=== PATIENT | female | born 1935 | race Caucasian/White ===

== ENCOUNTER → 2016-12-24 | Outpatient (CLI) | payer OTHER ==
[~2016-12-24] MED LIST: ACETAMINOPHEN PO; AZOR 10/40 MG T1 TAB PO; CALTRATE-600/VI1 TA2 PO; CATAPRES0.1 MG PO; CENTRUM SILVER PO; CLOPIDOGREL75 MG PO; CRESTOR PO; DORZOLAMIDE HCL10 M1 OS; HYDRALAZINE HC100 MG PO; LATANOPROST2.5 ML OS; LOPRESSOR PO; METFORMIN HCL500 M4 PO; METOPROLOL TAR25 MG PO; PEPCID PO; SYNTHROID0.05 MG PO; TRICOR134 MG PO; TRILIPIX135 MG PO; ZETIA PO
--- NOTE | ~2016-12-24 | US11 ---
[facility] A Service of [facility] & [facility] RADIOLOGY TEXT RESULTS PATIENT: ASHLEY CUMMINS LOCATION: [facility] : 35 UNIT #: [id number] AGE: [address]: Mason Redding MD SEX: F ORDER DR: [id number] [facility] [address] [place], [place] [address] [id number] O MR#: [id number] Acc #: [id number] NAME: ASHLEY CUMMINS : 1935 SEX: F STUDY DATE/TIME: 12/24/2016 12:44 UNIT: [facility] ROOM: STUDY DESCRIPTION: US Aorta Duplex Complete Attending Physician: Mason Redding M.D. Referring Physician: Mason Redding M.D. Ordering Physician: Mason Redding M.D. Primary Care Physician: Breezy Farah M.D. MEDICAL IMAGING REPORT This report is preliminary unless electronic signature is present EXAM Ultrasound of the aorta, 12/24/2016. HISTORY Abdominal aortica aneurysm. FINDINGS High-resolution, B-mode imaging and color flow Doppler analysis was performed of the abdominal aorta and iliac arteries in longitudinal and transverse views. The abdominal aorta measures 2.3 cm in greatest diameter in its proximal segment, 2.3 cm in greatest diameter in its mid segment and 4.4 cm in greatest diameter in its distal segment. The right common iliac artery measures about 11 mm in diameter. The left common iliac artery measures about 9 mm in diameter. There is no focal elevation of Doppler velocities at any level to suggest significant stenosis. IMPRESSION A 4.4 cm distal abdominal aortic aneurysm. The aneurysm has increased slightly in size compared to the previous study performed on 05/24/2015 when it measured 3.7 cm in diameter. Dictated by... Guido Cuellar M.D. THIS IS AN ELECTRONICALLY VERIFIED REPORT Guido Cuellar M.D. at 12/27/2016 10:29 AM SBS/coby TD: 12/25/2016 07:31 JOB #: [id number] MEDICAL IMAGING REPORT [facility] A Service of [facility] & [facility] RADIOLOGY TEXT RESULTS PATIENT: ASHLEY CUMMINS LOCATION: [facility] #: [id number] : 35 UNIT #: [id number] AGE: [address]: Masno Redding MD SEX: F ORDER DR: Page 1 of 1 COPY
--- NOTE | ~2016-12-24 | US82 ---
[facility] A Service of [facility] & [facility] RADIOLOGY TEXT RESULTS PATIENT: ASHLEY CUMMINS LOCATION: [facility] : 35 UNIT #: [id number] AGE: [address]: Mason Redding MD SEX: F ORDER DR: [id number] [facility] [address] [place], [place] [address] [id number] O MR#: [id number] Acc #: [id number] NAME: ASHLEY CUMMINS : 1935 SEX: F STUDY DATE/TIME: 12/24/2016 11:24 UNIT: [facility] ROOM: STUDY DESCRIPTION: US LE Art/Art Grafts Comp Melvin Attending Physician: Mason Redding M.D. Referring Physician: Mason Redding M.D. Ordering Physician: Mason Redding M.D. Primary Care Physician: Breezy Farah M.D. MEDICAL IMAGING REPORT This report is preliminary unless electronic signature is present EXAM Lower extremity arterial segmental pressures, 12/24/2016 HISTORY Peripheral artery disease. Claudication. FINDINGS The right brachial pressure is 162 and the left brachial pressure is 152. The right upper thigh pressure is 177, lower thigh 173, calf 123, dorsalis pedis 128, posterior tibial 139, and toes 73 for an ankle-brachial index of 0.86. Toe brachial index on the right is 0.45. The left upper thigh pressure is 201, lower thigh 195, calf 181, dorsalis pedis 170, posterior tibial 172, and toe 83 for an ankle-brachial index of 1.06. Toe brachial index on the left is 0.51. Doppler waveform analysis indicates a monophasic signal in the posterior tibial arteries bilaterally. There is a monophasic signal in the dorsalis pedis arteries bilaterally. Pulse volume recording tracings demonstrate damping of the signal from the calf to the ankle level on both sides. IMPRESSION Mild ischemia of the right leg with an ankle-brachial index of 0.86. There appears to be primarily popliteal and tibial artery occlusive disease involving the right leg. Normal perfusion to the left leg with an ankle-brachial index of 1.06. 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 STS. [facility] A Service of [facility] & [facility] RADIOLOGY TEXT RESULTS PATIENT: ASHLEY CUMMINS [facility] #[facility] [id number] : 35 UNIT #: [id number] AGE: [address]: Mason Redding MD SEX: F ORDER DR: Dictated by... Guido Cuellar M.D. THIS IS AN ELECTRONICALLY VERIFIED REPORT Guido Cuellar M.D. at 12/27/2016 10:29 AM MEGAN/maldonado TD: 12/25/2016 07:24 JOB #: [id number] MEDICAL IMAGING REPORT Page 1 of 1 COPY
--- NOTE | ~2016-12-24 | US37 ---
[facility] A Service of [facility] & [facility] RADIOLOGY TEXT RESULTS PATIENT: ASHLEY CUMMINS LOCATION: [facility] : 35 UNIT #: [id number] AGE: [address]: Mason Redding MD SEX: F ORDER DR: [id number] [facility] [address] [place], [place] [address] [id number] O MR#: [id number] Acc #: [id number] NAME: ASHLEY CUMMINS : 1935 SEX: F STUDY DATE/TIME: 12/24/2016 12:19 UNIT: [facility] ROOM: STUDY DESCRIPTION: US Carotid W/Doppler Bilateral Attending Physician: Mason Redding M.D. Referring Physician: Mason Redding M.D. Ordering Physician: Mason Redding M.D. Primary Care Physician: Breezy Farah M.D. MEDICAL IMAGING REPORT This report is preliminary unless electronic signature is present EXAM Carotid duplex, bilateral. HISTORY Carotid stenosis. Previous left carotid endarterectomy. FINDINGS The right common carotid artery has a small amount of heterogeneous plaque. There is a large amount of heterogeneous dense plaque in the right carotid bulb, which extends up into the proximal internal and external carotid arteries. Peak systolic velocity in the mid right internal carotid artery is 204 cm per second, with an end-diastolic velocity of 40 cm per second. The ICA to CCA ratio on the right is 3.96. Peak systolic velocity of the right external carotid artery is 434 cm per second. The right vertebral artery is patent with antegrade flow. The left common carotid artery has a small amount of heterogeneous plaque. The left carotid bulb is slightly dilated, consistent with previous surgery. There is minimal plaque in the left internal and external carotid arteries. Peak systolic velocity in the mid left internal carotid artery is 67 cm per second, with an end-diastolic velocity of 18 cm per second. The ICA to CCA ratio on the left is 1.08. Peak systolic velocity in the left external carotid artery is 84 cm per second. The left vertebral artery is patent with antegrade flow. IMPRESSION Moderate stenosis (50%-69%) of the right internal carotid artery. Significant stenosis of the right external carotid artery. Small amount of recurrent plaque, but no significant stenosis (less than 50%) in the left internal and external carotid arteries. Patent vertebral arteries bilaterally with antegrade flow. [facility] A Service of [facility] / [facility] RADIOLOGY TEXT RESULTS PATIENT: ASHLEY CUMMINS LOCATION: [facility] #: [id number] : 35 UNIT #: [id number] AGE: [address]: Mason Redding MD SEX: F ORDER DR: Dictated by... Guido Cuellar M.D. THIS IS AN ELECTRONICALLY VERIFIED REPORT Guido Cuellar M.D. at 12/25/2016 7:31 AM MEGAN/ad TD: 12/25/2016 07:22 JOB #: [id number] MEDICAL IMAGING REPORT Page 1 of 1 COPY
== END | disposition home or self-care (01) ==
LOC: CGUS 11:07
DX: I65.23 Occlusion and stenosis of bilateral carotid arteries (principal); I71.4 Abdominal aortic aneurysm, without rupture; I73.9 Peripheral vascular disease, unspecified; I74.3 Embolism and thrombosis of arteries of the lower extremities
CPT/HCPCS: 93880; 93925; 93978